=== PATIENT | female | born 1970 | race Caucasian/White ===

== ENCOUNTER 2016-07-08 01:19 | Emergency (ER) | payer SELFPAY ==
[~2016-07-08] VITALS: Ht 160 cm; Wt 68.0 kg
[2016-07-08] MEDS ORDERED: VITAMINS (01:28)
[2016-07-08] MEDS ORDERED: Norco 5mg/325mg tab ORAL ONE (02:00)
[2016-07-08] MEDS ORDERED: Augmentin 875mg Tab ORAL ONE (02:00)
[2016-07-08] MEDS ORDERED: AUGMENTIN 875-1 EAC1 ORAL (02:08)
[2016-07-08] MEDS ORDERED: CORTISPORIN EAR10 ML LEFT EAR (02:08)
--- NOTE | 2016-07-08 02:09 | Emergency Room Report ---
History of Present Illness General Chief Complaint: Earache Source: Patient Present Illness HPI Is a 46-year-old female with no significant past medical history. She presents with chewing left ear pain. Onset for last 2 days. Mild yesterday but severe today. Pain is 8/10. No relief with Aleve. She does have sinus congestion and postnasal drip. Denies any other complaint. No recent swimming. Allergies: Coded Allergies: No Known Allergies (Unverified , 07/08/16) Patient History Past Medical History: see triage record, old chart reviewed Past Surgical History: other Pertinent Family History: none Social History: Denies: smoking Last Menstrual Period: 2 years ago Now: No Immunizations: other Reviewed Nursing Documentation: PMH: Agreed, PSxH: Agreed Nursing Documentation-PMH Past Medical History: No Stated History Review of Systems Eye: Denies: blurred vision, eye pain ENT: Reports: ear pain, Denies: nose congestion, throat swelling Respiratory: Denies: cough, shortness of breath Cardiovascular: Denies: chest pain, palpitations Gastrointestinal: Denies: abdominal pain, diarrhea, nausea, vomiting Musculoskeletal: Denies: back pain, joint pain Skin: Denies: rash Neurological: Denies: headache, numbness Endocrine: Denies: increased thirst, increased urine Hematologic/Lymphatic: Denies: easy bruising All Other Systems: negative except mentioned in HPI Physical Exam Vital Signs Date Time Temp Pulse Resp B/P Pulse Ox O2 Delivery O2 Flow Rate FiO2 07/08/16 01:24 98.2 92 16 122/84 98 Room Air vitals normal Sp02 EP Interpretation: reviewed, normal General Appearance: well appearing, no apparent distress, alert Head: normocephalic, atraumatic Eyes: bilateral eye EOMI, bilateral eye PERRL ENT: hearing grossly normal, normal pharynx, other - Right TM with bubbles and fluids. Neck: full range of motion, supple, no meningismus Respiratory: chest non-tender, lungs clear, normal breath sounds Cardiovascular #1: regular rate, rhythm, no murmur Gastrointestinal: normal bowel sounds, non tender, no mass, no organomegaly, no bruit, non-distended Musculoskeletal: back normal, gait/station normal, normal range of motion Psychiatric: mood/affect normal Skin: warm/dry Medical Decision Making Diagnostic Impression: Primary Impression: Otitis externa of left ear Qualified Codes: H60.502 - Unspecified acute noninfective otitis externa, left ear Additional Impression: Otitis media Qualified Codes: H66.90 - Otitis media, unspecified, unspecified ear ER Course Patient presents with both otitis media and otitis externa. Because of otitis media, we'll put on antibiotics. Otitis externa will be treated with drops. No evidence of mastoiditis, meningitis, pneumonia to name a few. Last Vital Signs Date Time Temp Pulse Resp B/P Pulse Ox O2 Delivery O2 Flow Rate FiO2 07/08/16 01:24 98.2 92 16 122/84 98 Room Air Status: improved Disposition: HOME, SELF-CARE Condition: Stable Scripts Neomycin/Polymyxin B Sulf/Hc* (CORTISPORIN EAR SOLUTION*) 10 Ml Solution 4 DROP LEFT EAR QID, #10 ML 0 Refills Prov: RONNI DU M.D. 07/08/16 Amoxicillin/Potassium Clav 875-125* (AUGMENTIN 875-125 TABLET*) 1 Each Tablet 1 TAB ORAL TWICE A DAY, #14 TAB Prov: RONNI DU M.D. 07/08/16 Patient Instructions: Otitis Externa, [id number] Additional Instructions: Followup with your Dr. in 2 to 3 days. Return if symptom worsen. RONNI DU M.D. July 08, 2016 02:09
[2016-07-08 02:24] VITALS: BP 122/65
== END 2016-07-08 02:24 | disposition home or self-care (01) ==
LOC: EMR 02:00
DX: H60.502 Unspecified acute noninfective otitis externa, left ear (principal); H66.90 Otitis media, unspecified, unspecified ear
CPT/HCPCS: 99284